=== PATIENT | female | born 1990 | race Caucasian/White ===

== ENCOUNTER → 2017-08-27 15:49 | Outpatient (CLI) | payer OTHER, SELFPAY ==
--- NOTE | 2017-08-27 15:51 | US_ITS ---
STUDY: SECOND AND THIRD TRIMESTER OBSTETRICAL ULTRASOUND REASON FOR EXAM: Female, 27 years old. Anatomy scan. LMP: April 16, 2017. TECHNIQUE: Transabdominal PRIOR ULTRASOUND: None. FINDINGS: There is a single intrauterine fetus. The fetus is in a cephalic presentation. There is demonstrated cardiac activity with a heart rate of 143 bpm. There is a normal amniotic fluid volume. The largest amniotic fluid pocket measures 3.4 cm. The placenta is posterior in location and is not low lying. There are Grade 0 placental changes. The cervix measures 3.3 cm in length. The bilateral adnexal regions are normal. BIOMETRY: BPD: 4.42 cm: 19 weeks, 3 days HC: 16 cm: 18 weeks, 6 days AC: 13.51 cm: 19 weeks, 0 days FL: 2.95 cm: 19 weeks, 1 days CI: 79 FL/BPD: 67 FL/HC: FL/AC: 22 HC/AC: 1.18 age by current US: 19 weeks, 1 days. TORRES by current US: January 20, 2018. Estimated weight: 270 grams, +/- 39 grams, 47 %. Age by LMP: 19 weeks, 0 days. TORRES by LMP: January 21, 2018. ANATOMY: Gender: Male Cranium: Normal lateral ventricles. Normal choroid plexus. Normal cerebellum. Normal cisterna magna. Normal face, nose and lips. Chest: Normal 4-chamber heart. Abdomen/Pelvis: Normal diaphragm. Normal stomach. Normal abdominal wall. Normal cord insertion. Normal 3 vessel cord. Normal kidneys. Normal bladder. Spine: Normal cervical spine. Normal thoracic spine. Normal lumbar spine. Normal sacrum. Extremities: Normal bilateral upper extremities. Normal bilateral lower extremities. US/OB Anatomy Scan IMPRESSION: 1. Live single intrauterine at 19 weeks, 1 day. TORRES is January 20, 2018. This correlates with expected gestational age by LMP. 2. EFW of 270 g. 3. Adequate amniotic fluid. 4. Posterior grade 0 placenta. 5. Vertex presentation. 6. No evidence of abnormality. Electronically Signed: George Davila DO at 18:51 EDT Tel [phone], Service support ,
== END ==
PROVIDERS: Visit Provider Obstetrics & Gynecology
DX: Z34.01 Encounter for supervision of normal first pregnancy, first trimester (principal); Z3A.00 Weeks of gestation of pregnancy not specified
CPT/HCPCS: 76805

== ENCOUNTER → 2017-10-28 15:17 | Outpatient (CLI) | payer OTHER, SELFPAY ==
[2017-10-28 16:02] LABS: Absolute Lymphocyte Count 2.07 X10^3/ul (0.83-4.51); Absolute Neutrophil Count 7.3 X10^3/uL (2.0-7.7); Basophil# 0.03 X10^3/uL; Basophil% 0.3 % (0-1); Eosinophil# 0.27 X10^3/uL; Eosinophils% 2.5 % (0-5); Hematocrit 32.9 % (37-47); Hemoglobin 11.3 g/dl (12.0-15.0); Lymphocyte # 2.07 X10^3/ul (4.0); Mean Corp Hgb Conc 34.3 g/gl (32-36); Mean Corpuscular Hgb 32.8 pg (27.0-32.0); Mean Corpuscular Volume 95.4 fL (81-99); Mean Platelet Vol. 11.8 fl (6.2-12.0); Monocyte% 10.1 % (0-10); Neutrophil # 7.29 X10^3/uL (2.7-7.7); Neutrophil % 67.1 % (47-70); Platelet Count 195 K/mm3 (150-450); RBC Distribution Width CV 13.5 % (11.6-14.6); Red Blood Count 3.45 M/mm3 (4.2-5.4); White Blood Count 10.9 K/mm3 (4.4-11.0)
[2017-10-28 16:05] LABS: POSITIVE COUNT NO; POSITIVE DIFFERENTIAL NO; POSITIVE MORPHOLOGY NO
[2017-10-28 16:10] LABS: Glucose Challenge Gest 1H 50g 98 mg/dL (70-140)
== END ==
PROVIDERS: Visit Provider Obstetrics & Gynecology
DX: Z34.01 Encounter for supervision of normal first pregnancy, first trimester (principal)
CPT/HCPCS: 36415; 82950; 85025; 86850; 86900

== ENCOUNTER → 2017-12-30 17:27 | Outpatient (CLI) | payer OTHER, SELFPAY ==
[2017-12-30 19:50] LABS: Group B Strep DNA By PCR POSITIVE (Negative); Probe Check PASS
== END ==
PROVIDERS: Visit Provider Obstetrics & Gynecology
DX: Z34.00 Encounter for supervision of normal first pregnancy, unspecified trimester (principal)
CPT/HCPCS: 87653

== ENCOUNTER 2018-01-25 09:30 | Inpatient (IN) | payer OTHER, SELFPAY ==
[2018-01-25 07:45] VITALS: BMI 32.5
[2018-01-25 09:57] LABS: Hematocrit 36.8 % (37-47); Hemoglobin 12.4 g/dl (12.0-15.0); Mean Corp Hgb Conc 33.7 g/gl (32-36); Mean Corpuscular Hgb 31.7 pg (27.0-32.0); Mean Corpuscular Volume 94.1 fL (81-99); Mean Platelet Vol. 12.9 fl (6.2-12.0); Platelet Count 147 K/mm3 (150-450); RBC Distribution Width CV 13.5 % (11.6-14.6); RBC Distribution Width SD 46.1 fl (35.1-43.9); Red Blood Count 3.91 M/mm3 (4.2-5.4); White Blood Count 11.1 K/mm3 (4.4-11.0)
[2018-01-25 09:58] LABS: Scan Indicated on CBC? Y/N NO
[2018-01-25] MEDS: Lactated Ringers 1,000 ML 50 ML IV ×3 (10:11→14:48)
[2018-01-25] MEDS: fentaNYL-bupivacaine (epidural) 100 ML BAG EPIDURAL ×2 (11:42→14:48)
[2018-01-25] MEDS: Oxytocin 30 units/NS 500 ml 30 UNITS/500 ML IV.SOLN 334 UNITS IV (18:03)
[2018-01-25] MEDS: Oxytocin 30 units/NS 500 ml 30 UNITS/500 ML IV.SOLN 167 UNITS IV (18:30)
[2018-01-25] MEDS: 0.9% Saline Lock 10 ML Syringe IV (19:41)
[2018-01-25 23:00] VITALS: BP 126/58; PULSE 78; RESP 16; TEMP 36.4; O2SAT 97
[2018-01-26] MEDS: Acetaminophen 500 MG Tablet 1000 MG PO ×3 (00:13→18:20)
[2018-01-26 03:18] VITALS: BP 113/56; PULSE 86; RESP 16; TEMP 36.4; O2SAT 98
--- NOTE | 2018-01-26 08:30 | PCM.PN.OB ---
Subjective: No CP, SOb. Doing well - Physical Exam General: Alert, Oriented x3 Abdomen: Soft, Non Tender, - - FF below U Vital Signs Temp Pulse Resp BP Pulse Ox 97.5 F L 86 16 113/56 L 98 01/26/18 03:18 01/26/18 03:18 01/26/18 03:18 01/26/18 03:18 01/26/18 03:18 Oxygen Delivery Method Room Air Weight: 207 lb 12.8 oz Body Mass Index (BMI) 32.5 Intake and Output for Last 24 Hours 01/24/18 01/25/18 01/26/18 23:59 23:59 23:59 Intake Total 3839 / 3839 Output Total 1250 / 1250 300 / 300 Balance 2589 / 2589 -300 / -300 Laboratory Tests Past 24 Hrs 01/25/18 01/25/18 01/25/18 09:40 09:40 19:30 WBC 11.1 H RBC 3.91 L Hgb 12.4 Hct 36.8 L MCV 94.1 MCH 31.7 MCHC 33.7 RDW 13.5 RDW Differential 46.1 H Plt Count 147 L MPV 12.9 H Blood Type O NEGATIVE Antibody Screen NEGATIVE Screen NEGATIVE Baby's Blood Type O POSITIVE Baby's CHANO NEGATIVE Medical Necessity - Tobacco Use Smoking Status: Never smoker Assessment/Plan All Active Problems (Last Reviewed 01/21/18 @ 16:12 by Pauly Lima) (Acute) GBS (group B Streptococcus carrier), +RV culture, currently (Acute) Rh negative status during (Acute) Supervision of normal first (Acute) PPD#1: Routine care, pain controlled, .
[2018-01-26 09:10] VITALS: BP 111/75; PULSE 75; RESP 20; TEMP 36.4; O2SAT 98
[2018-01-26 12:15] VITALS: BP 110/51; PULSE 70; TEMP 36.2; O2SAT 99
[2018-01-26 15:40] VITALS: BP 113/57; PULSE 71; TEMP 36.2; O2SAT 99
[2018-01-26 20:10] VITALS: BP 115/57; PULSE 84; RESP 16; TEMP 36.6; O2SAT 98
[2018-01-27 03:20] VITALS: BP 121/62; PULSE 78; RESP 16; TEMP 36.6; O2SAT 98
[2018-01-27] MEDS: Ketorolac 10 MG Tablet PO ×2 (03:30→10:06)
[2018-01-27 08:00] VITALS: BP 114/64; PULSE 55; RESP 16; TEMP 36.1
[2018-01-27] MEDS: Senna/Docusate Sodium 1 Tablet PO (10:09)
[2018-01-27 12:59] VITALS: BP 113/57; PULSE 72; RESP 16; TEMP 36.2
--- NOTE | 2018-01-27 14:05 | PCM.DCVAG ---
Additional Instructions: If you experience any of the following, contact your healthcare provider. Bleeding that soaks a pad every hour for 2 hours Fever 100.4 or higher Unrelieved incision or abdominal pain Swelling, redness, discharge or bleeding from your incision or episiotomy site Your incision begins to separate Problems urinating (including inability to urinate or burning while urinating). Visual changes Severe headache Flu-like symptoms Pain or redness in one of both of your breasts Pain, warmth, tenderness or swelling in your legs, especially the calf area Frequent nausea and vomiting Symptoms of depression or anxiety If you experience any of the following, call 911 or go to the nearest Emergency Room. Chest pain Problems breathing Seizure activity Partial or complete paralysis of a body part, slurred speech, weakness or drooping of the face, or a sudden inability to walk or hold your balance Allergies/Adverse Reactions: Allergies No Known Allergies Allergy (Verified 01/25/18 07:46) Medications to take at Discharge vit 47-iron fum 27 mg iron-folate no1 1 mg-dha 300 mg capsule 1 cap PO .daily #30 ea 06/09/17 naproxen 500 mg tablet 500 mg PO BID PRN #30 tab 01/27/18 Primary Care Physician: Abeba Hernandez,Out of [Primary Care Provider] - Test Results: Test results from this visit will be discussed in further detail at your follow-up appointment, if applicable.
--- NOTE | 2018-01-31 07:23 | PCM.HP.OB ---
- Problem List (1) Active labor Status: Acute History Date of Admission: 01/25/18 Final TORRES: 01/21/18 Gestational age: 40 Weeks and 4 Days History of this : This is a 27 year-old, , at 40 weeks gestational age IAL co regular ctx. she has had an uncomplicated Surgical History: Surgical History (Last Reviewed 01/21/18 @ 16:12 by Pauly Lima) History of tonsillectomy Z98.890, Z90.89 Allergies No Known Allergies Allergy (Verified 01/25/18 07:46) Home Medications: Home Medications vit 47-iron fum 27 mg iron-folate no1 1 mg-dha 300 mg capsule 1 cap PO .daily #30 ea 06/09/17 naproxen 500 mg tablet 500 mg PO BID PRN #30 tab 01/27/18 Smoking Status: Never smoker Heart Tracing: fht 140 moderate variability reactive no decels TOCO Analysis: q2-4 History Past Pregnancies: Past Pregnancies Delivery Date Name GA/Weeks Outcome Route Weight Infant Gender Labor Length Anesthesia Delivery Location Provider FOB Labs: Mom's Labs & Results 01/25/18 01/25/18 01/25/18 09:40 09:40 19:30 WBC 11.1 H RBC 3.91 L Hgb 12.4 Hct 36.8 L MCV 94.1 MCH 31.7 MCHC 33.7 RDW 13.5 RDW Differential 46.1 H Plt Count 147 L MPV 12.9 H Blood Type O NEGATIVE Antibody Screen NEGATIVE Screen NEGATIVE Baby's Blood Type O POSITIVE Baby's CHANO NEGATIVE Course Did the patient receive Yes care? Labs Blood Type: O RH: NEGATIVE RPR/VDRL/Syphilis Nonreactive Rubella status Immune HbSAg Negative Date Done: 06/09/17 Chlamydia Negative Gonorrhea Negative HIV/AIDS Non-Reactive Group B Strep: Positive Current Obstetrical History Gestational Diabetes No Incompetent Cervix No Infertility No IUGR No Macrosomia No Hypertension/Pre-eclampsia No Placenta Previa/Abruption No PTL/PROM No Uterine anomaly No Oligohydramnios No Polyhydramnios No Multiple gestation No Past Medical History Asthma No Diabetes No Hypertension No Heart disease No Mitral valve prolapse No Neurologic/Seizure disorder/ No Migraines Kidney disease No Liver disease No Varicosities No Clotting disorders/Hx of DVT No Thyroid Dysfunction No Other medical diseases No Psychiatric disorders No Major trauma No Abnormal PAP smear No Sleep apnea No Mammogram in the last 2 years No Social History Marital Status: Alleged father Shaun Hernandez Hx Smoking No Smoking Status Never smoker Review of Systems Constitutional: Denies: Fever, Malaise Eyes: Denies: Blurred vision, Vision Change HEENT: Denies: Head Aches, Visual Changes Cardiovascular: Denies: Chest Pain, Palpitations Respiratory: Denies: Cough, Shortness of Breath, Wheezing Gastrointestinal: Denies: Abdominal Pain, Diarrhea, Nausea, Vomiting Genitourinary: Denies: Dysuria, Hematuria Musculoskeletal: Denies: Joint Pain, Muscle pain Skin: Denies: Lesions, Rash Neurological: Denies: Blurred vision, Focal weakness, Headaches Psychiatric: Denies: Anxiety, Depression Endocrine: Denies: Heat/ Cold Intolerance Hematologic/ Lymphatic: Denies: Easy Bruising, Easy Bleeding Physical Exam Vitals: Vital Signs Temp Pulse Resp BP Pulse Ox 97.2 F L 72 16 113/57 L 98 01/27/18 12:59 01/27/18 12:59 01/27/18 12:59 01/27/18 12:59 01/27/18 03:20 General: Alert, Cooperative, No apparent distress HEENT: Atraumatic, Normocephalic. Negative for: Thyromegaly, Lymphadenopathy Cardiovascular: Regular rate Lungs: Normal air movement Abdomen: Soft, Non Tender, Gravid Neurological: Deep Tendon Reflexes 2+/4 and Symmetrical, Neuro grossly intact. Negative for: Clonus STARS SPECIALIST: Normal external genitalia. Negative for: Vulvar lesions Estimated gestational size: Appropriate for gestational size Presentation: Cephalic Cervix Dilation (cm): 4 Assessment/Plan All Active Problems (Last Reviewed 01/21/18 @ 16:12 by Pauly Lima) Active labor (Acute) (Acute) GBS (group B Streptococcus carrier), +RV culture, currently (Acute) Rh negative status during (Acute) Supervision of normal first (Acute) This is a 27 year-old, at 40 weeks gestational age IAL admit IAL epidural arom clear fluid
--- NOTE | 2018-01-31 07:26 | PCM.OB.VAG ---
- Problem List (1) Active labor Status: Acute Vaginal Delivery Maternal Presentation: Active Labor ial 40 weeks Amniotic Membrane Rupture Type: Artificial Amniotic Fluid Description: Clear Final TORRES: 01/21/18 Gestational age: 40 Weeks and 4 Days Date of Procedure: 01/25/18 Pre-Operative Diagnosis: ial Post-Operative Diagnosis: same Surgery/ Procedure Performed: Spontaneous Vaginal Delivery Type of Anesthesia: Epidural Description of Procedure: Patient began pushing and delivered the head in the SYDNEY presentation. The head was delivered atraumatically. The anterior and posterior shoulders delivered without complication followed by the rest of the infant and the infant was placed on the maternal abdomen. Delayed cord clamping was employed for approximately 60 seconds. Cord was clamped and cut and gentle traction was applied to the cord and the placenta delivered spontaneously immediately following it was noted to be intact with three-vessel cord. The perineum and vagina were inspected and [noted to have a small 1st degree perineal laceration repaired in liborio usual fashion. Patient and infant tolerated delivery well. Presentation: SYDNEY Placental Delivery Description: Spontaneous Placenta Disposition: [facility] Cord Entanglement: None Episiotomy Description: None Laceration: Perineal Extension/lac, 1st degree Medications given after delivery: IV Pitocin Complications: None
== END 2018-01-27 15:35 | disposition home or self-care (01) | DRG 775 ==
LOC: WPOUT 09:35
PROVIDERS: Admitting Provider Obstetrics & Gynecology; Visit Provider Obstetrics & Gynecology
DX: O99.824 Streptococcus B carrier state complicating childbirth (principal); O70.0 First degree perineal laceration during delivery; Z3A.40 40 weeks gestation of pregnancy; Z37.0 Single live birth
CPT/HCPCS: 59025; 59050; 85027; 85461; 86850; 86900; 90384; 99218; J7120; A4216; G0378; J2790

== ENCOUNTER 2018-01-31 09:50 | Outpatient (CLI) | payer OTHER, SELFPAY | END 2018-01-31 11:15 | disposition home or self-care (01) | LOC: WPOUT 09:55 → WP 16:15 | PROVIDERS: Visit Provider Obstetrics & Gynecology | DX: Z39.1 Encounter for care and examination of lactating mother (principal) | CPT/HCPCS: 96152 ==

== ENCOUNTER 2018-02-07 10:25 | Outpatient (CLI) | payer OTHER, SELFPAY | END 2018-02-07 10:40 | disposition home or self-care (01) | LOC: WPOUT 10:33 → WP 10:33 | PROVIDERS: Visit Provider Obstetrics & Gynecology | DX: Z39.1 Encounter for care and examination of lactating mother (principal) | CPT/HCPCS: 96152 ==

== ENCOUNTER 2018-02-16 10:08 | Outpatient (CLI) | payer OTHER, SELFPAY | END 2018-02-16 11:00 | disposition home or self-care (01) | LOC: WPOUT 10:10 → WP 10:11 | PROVIDERS: Visit Provider Obstetrics & Gynecology | DX: Z39.1 Encounter for care and examination of lactating mother (principal) | CPT/HCPCS: 96152 ==

== ENCOUNTER → 2018-03-10 20:40 | Outpatient (CLI) | payer OTHER, SELFPAY ==
[2018-03-16 12:03] LABS: HPV Reflexed? NOT INDICATED
== END ==
PROVIDERS: Referring Provider Obstetrics & Gynecology; Visit Provider Obstetrics & Gynecology
DX: Z12.4 Encounter for screening for malignant neoplasm of cervix (principal)
CPT/HCPCS: 88175; G0145

== ENCOUNTER → 2019-11-13 08:51 | Outpatient (CLI) | payer OTHER, SELFPAY ==
[2019-11-08 15:49] VITALS: BMI 28.1
--- NOTE | 2019-11-13 08:52 | BI_ITS ---
MAMMOGRAPHY - BILATERAL DIAGNOSTIC REASON FOR EXAM: Female, 29 years old. Left breast lump with tenderness in the upper outer quadrant. PERTINENT HISTORY: Non-contributory. TECHNIQUE: Digital bilateral breast angel (3D mammographic acquisition) in the CC and MLO projections. 2-D mediolateral oblique (MLO) and craniocaudad (CC) views of both breasts were obtained. CAD: Full Field Digital Mammography with Computer Added Detection was performed. COMPARISON: None. Baseline examination. FINDINGS: Breast Composition: The breasts are extremely dense, which lowers the sensitivity of mammography. There are no dominant masses or suspicious calcifications. No other significant abnormalities are identified. BI/DIAG MAMM W/CAD, BILAT IMPRESSION: Negative diagnostic mammogram. With the patient''s history of a left breast lump, correlation with ultrasound is recommended. ASSESSMENT CATEGORY: BIRADS Category 0: Incomplete. Need additional imaging evaluation. A letter regarding these results will be sent to the patient by the facility within 30 days. Approximately 10% of breast cancers are not detected by mammography. A normal mammogram should not delay biopsy of a clinically suspicious abnormality. Electronically Signed: Yasir Mendoza, at 10:02 EDT , Service support ,
--- NOTE | 2019-11-13 08:52 | US_ITS ---
STUDY: ULTRASOUND BREAST - LEFT REASON FOR EXAM: Female, 29 years old. Palpable lump left breast. TECHNIQUE: Axial and longitudinal images of the LEFT breast were performed with a high resolution ultrasound transducer. # OF IMAGES: 15 COMPARISON: Comparison is made with prior mammogram done earlier in the day. FINDINGS: LEFT Breast: There is evidence of dense fibroglandular tissue in the upper outer quadrant of the left breast. No sonographic abnormality is seen. US/Breast Limited Unilateral IMPRESSION: No sonographic abnormalities. ASSESSMENT CATEGORY: BIRADS Category 2: Benign. A letter regarding these results will be sent to the patient by the facility within 30 days. Electronically Signed: Yasir Mendoza, at 10:18 EDT , Service support ,
== END ==
PROVIDERS: PCP Family Medicine; Referring Provider Obstetrics & Gynecology; Visit Provider Obstetrics & Gynecology
DX: N63.21 Unspecified lump in the left breast, upper outer quadrant (principal)
CPT/HCPCS: 76642; 77062; 77066; G0279

== ENCOUNTER → 2020-02-28 15:18 | Outpatient (CLI) | payer OTHER, SELFPAY ==
[2020-02-28 14:12] VITALS: BMI 27.1
[2020-02-28 15:38] LABS: Absolute Lymphocyte Count 1.81 X10^3/uL (0.83-4.51); Absolute Neutrophil Count 5.3 X10^3/uL (2.0-7.7); Basophil# 0.04 X10^3/uL; Basophil% 0.5 % (0-1); Eosinophils% 2.5 % (0-5); Hemoglobin 11.3 g/dL (12.0-15.0); Lymphocyte # 1.81 X10^3/ul (4.0); Lymphocyte % 22.6 % (19-41); Mean Corp Hgb Conc 33.2 g/dL (32-36); Mean Corpuscular Hgb 30.9 pg (27.0-32.0); Mean Corpuscular Volume 92.9 fL (81-99); Mean Platelet Vol. 12.2 fl (6.2-12.0); Monocyte# 0.69 X10^3/uL; Monocyte% 8.6 % (0-10); NRBC Flagged by Analyzer 0 % (0-5); Neutrophil # 5.26 X10^3/uL (2.7-7.7); Neutrophil % 65.6 % (47-70); Platelet Count 174 K/mm3 (150-450); RBC Distribution Width CV 12.6 % (11.6-14.6); Red Blood Count 3.66 M/mm3 (4.2-5.4)
[2020-02-28 18:57] LABS: Amphetamine Urine VISTA NEGATIVE (<1000 ng/mL); Barbiturate Urine VISTA NEGATIVE (< 200 ng/mL); Benzodiazepine Urine VISTA NEGATIVE (< 200 ng/mL); Cocaine Urine VISTA NEGATIVE (< 300 ng/mL); Ecstacy Urine VISTA NEGATIVE (< 500 ng/mL); Methadone Urine VISTA NEGATIVE (< 300 ng/mL); PCP Urine VISTA NEGATIVE (< 25 ng/mL); THC Urine VISTA NEGATIVE (< 50 ng/mL); Vista UDS pH Range 6
[2020-02-29 04:31] LABS: Rapid Plasmin Reagin (RPR) NONREACTIVE (NONREACTIVE)
[2020-02-29 10:10] LABS: HIV - WCH Non-Reactive (Nonreactive); Hepatitis B Surface Antigen Non-Reactive (Nonreactive); Hepatitis C Antibody Non-Reactive (Nonreactive); Rubella IgG 136.2 IU/mL
[2020-03-02 20:07] LABS: Chlamydia By Nucleic Acid AMP Negative (Negative)
[2020-03-02 20:51] LABS: Gonococcus By Nucleic Acid AMP Negative (Negative)
== END ==
PROVIDERS: PCP Family Medicine; Referring Provider Obstetrics & Gynecology; Visit Provider Obstetrics & Gynecology
DX: Z34.90 Encounter for supervision of normal pregnancy, unspecified, unspecified trimester (principal)
CPT/HCPCS: 36415; 80307; 85025; 86592; 86703; 86762; 86803; 86850; 86900; 86901; 87086; 87088; 87340; 87491; 87591

== ENCOUNTER → 2020-04-22 13:36 | Outpatient (CLI) | payer OTHER, SELFPAY ==
[2020-04-22 13:03] VITALS: BMI 27.6
[2020-04-22 14:15] LABS: Thyroid Stim Hormone (TSH) 3.49 uIU/mL (0.358-3.74)
== END ==
PROVIDERS: PCP Family Medicine; Referring Provider Obstetrics & Gynecology; Visit Provider Obstetrics & Gynecology
DX: R53.83 Other fatigue (principal)
CPT/HCPCS: 36415; 84443

== ENCOUNTER → 2020-05-06 06:37 | Outpatient (CLI) | payer OTHER, SELFPAY ==
[2020-05-06 07:15] LABS: Absolute Lymphocyte Count 2.16 X10^3/uL (0.83-4.51); Absolute Neutrophil Count 8.5 X10^3/uL (2.0-7.7); Basophil# 0.04 X10^3/uL; Basophil% 0.3 % (0-1); Eosinophil# 0.41 X10^3/uL; Eosinophils% 3.4 % (0-5); Hematocrit 35.6 % (37-47); Hemoglobin 11.7 g/dL (12.0-15.0); Lymphocyte # 2.16 X10^3/ul (4.0); Lymphocyte % 17.9 % (19-41); Mean Corp Hgb Conc 32.9 g/dL (32-36); Mean Corpuscular Hgb 31.7 pg (27.0-32.0); Mean Corpuscular Volume 96.5 fL (81-99); Mean Platelet Vol. 11.6 fl (6.2-12.0); Monocyte# 0.74 X10^3/uL; Monocyte% 6.1 % (0-10); NRBC Flagged by Analyzer 0 % (0-5); Neutrophil # 8.46 X10^3/uL (2.7-7.7); Neutrophil % 70.4 % (47-70); Platelet Count 215 K/mm3 (150-450); RBC Distribution Width CV 13.6 % (11.6-14.6); RBC Distribution Width SD 47.5 fl (35.1-43.9); Red Blood Count 3.69 M/mm3 (4.2-5.4)
[2020-05-06 07:45] LABS: ALB/GLOB Ratio 0.9 RATIO (0.9-2.4); AST(SGOT) 8 U/L (15-37); Alanine Aminotransfer ALT/SGPT 17 U/L (13-56); Albumin, Serum 3.3 g/dL (3.2-5.0); Alkaline Phosphatase 51 U/L (45-117); Anion Gap 5 (5-15); BUN 9 mg/dL (7-18); BUN/Creat Ratio 13.5 RATIO (10-20); Calcium,Total 8.6 mg/dL (8.5-10.1); Chloride 103 mmol/L (98-107); Creatinine, Serum 0.67 mg/dL (0.55-1.02); EST Glomerular Filtration Rate 112 mL/min (>60); Est Glom Filt Rate - Afr Amer 135 mL/min (>60); Globulin 3.7 g/dL (2.2-4.2); Glucose 65 mg/dL (74-106); Potassium 3.4 mmol/L (3.5-5.1); Sodium Level 136 mmol/L (136-145)
== END ==
PROVIDERS: PCP Family Medicine; Referring Provider Obstetrics & Gynecology; Visit Provider Obstetrics & Gynecology
DX: R21 Rash and other nonspecific skin eruption (principal)
CPT/HCPCS: 36415; 80053; 85025

== ENCOUNTER → 2020-05-21 06:05 | Outpatient (CLI) | payer OTHER, SELFPAY ==
[2020-05-20 16:06] VITALS: BMI 28.7
== END ==
PROVIDERS: Obstetrics & Gynecology; PCP Family Medicine; Referring Provider Obstetrics & Gynecology; Visit Provider Obstetrics & Gynecology
DX: R21 Rash and other nonspecific skin eruption (principal)
CPT/HCPCS: 36415

== ENCOUNTER → 2020-06-03 06:18 | Outpatient (CLI) | payer OTHER, SELFPAY ==
[2020-05-30 14:22] VITALS: BMI 29.7
== END ==
PROVIDERS: PCP Family Medicine; Referring Provider Obstetrics & Gynecology; Visit Provider Obstetrics & Gynecology
DX: R21 Rash and other nonspecific skin eruption (principal)
CPT/HCPCS: 36415

== ENCOUNTER → 2020-07-17 15:10 | Outpatient (CLI) | payer OTHER, SELFPAY ==
[2020-06-17 16:07] VITALS: BMI 30.9
[2020-07-17 15:27] LABS: Absolute Lymphocyte Count 1.76 X10^3/uL (0.83-4.51); Absolute Neutrophil Count 8.2 X10^3/uL (2.0-7.7); Basophil# 0.07 X10^3/uL; Basophil% 0.6 % (0-1); Eosinophil# 0.36 X10^3/uL; Eosinophils% 3.1 % (0-5); Hematocrit 34.3 % (37-47); Hemoglobin 11.6 g/dL (12.0-15.0); Lymphocyte # 1.76 X10^3/ul (4.0); Mean Corp Hgb Conc 33.8 g/dL (32-36); Mean Corpuscular Hgb 32.5 pg (27.0-32.0); Mean Corpuscular Volume 96.1 fL (81-99); Mean Platelet Vol. 11.5 fl (6.2-12.0); Monocyte# 1.08 X10^3/uL; Monocyte% 9.2 % (0-10); NRBC Flagged by Analyzer 0 % (0-5); Neutrophil # 8.24 X10^3/uL (2.7-7.7); Neutrophil % 70.1 % (47-70); Platelet Count 198 K/mm3 (150-450); RBC Distribution Width CV 13.3 % (11.6-14.6); RBC Distribution Width SD 47.1 fl (35.1-43.9); Red Blood Count 3.57 M/mm3 (4.2-5.4); White Blood Count 11.8 K/mm3 (4.4-11.0)
[2020-07-17 15:42] LABS: Glucose Challenge Gest 1H 50g 94 mg/dL (70-140)
== END ==
PROVIDERS: PCP Family Medicine; Referring Provider Obstetrics & Gynecology; Visit Provider Obstetrics & Gynecology
DX: O26.899 Other specified pregnancy related conditions, unspecified trimester (principal); Z13.1 Encounter for screening for diabetes mellitus; Z67.91 Unspecified blood type, Rh negative; Z3A.00 Weeks of gestation of pregnancy not specified
CPT/HCPCS: 36415; 82950; 85025; 86850; 86900; 86901

== ENCOUNTER → 2020-09-23 | Outpatient (CLI) | payer OTHER, SELFPAY ==
[2020-09-23 15:42] VITALS: BMI 31.9
== END | disposition home or self-care (01) ==
LOC: LABSPEC 16:51
PROVIDERS: PCP Family Medicine; Referring Provider Obstetrics & Gynecology; Visit Provider Obstetrics & Gynecology
DX: Z34.90 Encounter for supervision of normal pregnancy, unspecified, unspecified trimester (principal)
CPT/HCPCS: 87077; 87081; 87186

== ENCOUNTER 2020-10-16 02:55 | Inpatient (IN) | payer OTHER, SELFPAY ==
[2020-10-14 09:20] VITALS: BMI 31.9
[2020-10-16] VITALS (51 sets, daily range): BP systolic 106–139; BP diastolic 52–74; PULSE 54–90; RESP 16; TEMP 35.9–37.4; O2SAT 85–100; BMI 34.8
[2020-10-16] MEDS: Lactated Ringers 500 ML 999 ML IV (03:00)
[2020-10-16] MEDS: Ondansetron 4 MG/2 ML Vial IV (03:17)
[2020-10-16 03:38] LABS: Absolute Lymphocyte Count 2.14 X10^3/uL (0.83-4.51); Absolute Neutrophil Count 5.9 X10^3/uL (2.0-7.7); Basophil# 0.05 X10^3/uL; Basophil% 0.5 % (0-1); Eosinophil# 0.18 X10^3/uL; Hematocrit 36.9 % (37-47); Hemoglobin 12.6 g/dL (12.0-15.0); Lymphocyte # 2.14 X10^3/ul (0.83-4.51); Lymphocyte % 23.2 % (19-41); Mean Corp Hgb Conc 34.1 g/dL (32-36); Mean Corpuscular Hgb 31.9 pg (27.0-32.0); Mean Corpuscular Volume 93.4 fL (81-99); Monocyte# 0.95 X10^3/uL; Monocyte% 10.3 % (0-10); NRBC Flagged by Analyzer 0 % (0-5); Neutrophil # 5.87 X10^3/uL (2.7-7.7); Neutrophil % 63.6 % (47-70); Platelet Count 147 K/mm3 (150-450); RBC Distribution Width CV 13.1 % (11.6-14.6); RBC Distribution Width SD 44.4 fl (35.1-43.9); Red Blood Count 3.95 M/mm3 (4.2-5.4); White Blood Count 9.2 K/mm3 (4.4-11.0)
[2020-10-16] MEDS: Lactated Ringers 1,000 ML 200 ML IV (03:39)
[2020-10-16] MEDS: fentaNYL-bupivacaine (epidural) 100 ML BAG EPIDURAL (04:28)
--- NOTE | 2020-10-16 05:41 | HP.PCM.OB_ITS ---
HPI - General General Date of Admission: 10/16/20 HPI Narrative TARA ERAZO, is a 30 F who presents in active labor with regular contractions 4 cm dilated 80% and -1. Patient is 41 weeks with her second baby. 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[employer] History 2 Elective abortions Hx Para 1 Spontaneous abortions Hx # Term Pregnancies 1 Ectopic pregnancies Hx # Pregnancies Multiple births # of living children 1 NST FHR Rate Baby A Baseline: 140 Variability:: Moderate Accelerations:: None Decelerations:: None NST Reactive:: Appropriate for gestational age and Non-Reactive ROS Review of Systems ROS Unobtainable: due to mental status and other Constitutional Constitutional: Reports systems reviewed and no addt'l complaints, except as documented; Denies as per HPI, change in weight, fatigue, fever(s), malaise, weakness or other Eyes Eyes: Reports systems reviewed and no addt'l complaints, except as documented; Denies as per HPI, change in vision or other ENT HEENT: Reports as per HPI; Denies dizziness, dry mouth, headache(s), loss taste/smell, nasal congestion, nasal discharge, neck pain, sore throat or other Respiratory/Chest Respiratory/Chest: Reports systems reviewed and no addt'l complaints, except as documented Gastrointestinal Gastrointestinal: Reports systems reviewed and no addt'l complaints, except as documented; Denies abdominal pain, nausea or vomiting Musculoskeletal Musculoskeletal: Reports systems reviewed and no addt'l complaints, except as documented; Denies back pain or joint pain Integumentary Integumentary: Reports systems reviewed and no addt'l complaints, except as documented Neurologic Neurologic: Reports systems reviewed and no addt'l complaints, except as documented Psychiatric Psychiatric: Reports systems reviewed and no addt'l complaints, except as documented Endocrine Endocrinology: Reports systems reviewed and no addt'l complaints, except as documented Hematologic/Lymphatic Hematologic/Lymphatic: Reports systems reviewed and no addt'l complaints, except as documented Vital Signs Vital Signs Vital Signs: 10/16/20 02:39 10/16/20 02:48 10/16/20 04:02 Temperature 98.4 F Pulse Rate 78 76 Blood Pressure 122/74 H BP Systolic 122 BP Diastolic 74 Pulse Ox 95 10/16/20 04:06 10/16/20 04:07 10/16/20 04:10 Temperature Pulse Rate 57 L 61 58 L Blood Pressure 119/67 119/66 BP Systolic 119 119 BP Diastolic 67 66 Pulse Ox 97 10/16/20 04:13 10/16/20 04:16 10/16/20 04:18 Temperature Pulse Rate 65 58 L 67 Blood Pressure 106/54 L BP Systolic 106 BP Diastolic 54 Pulse Ox 85 98 10/16/20 04:19 10/16/20 04:23 10/16/20 04:26 Temperature Pulse Rate 65 66 71 Blood Pressure 108/59 L 124/55 H BP Systolic 108 124 BP Diastolic 59 55 Pulse Ox 94 97 10/16/20 04:28 10/16/20 04:32 10/16/20 04:33 Temperature 97.9 F Pulse Rate 70 63 72 Blood Pressure 121/65 H BP Systolic 121 BP Diastolic 65 Pulse Ox 97 99 10/16/20 04:35 10/16/20 04:38 10/16/20 04:41 Temperature Pulse Rate 64 65 71 Blood Pressure 111/60 123/69 H BP Systolic 111 123 BP Diastolic 60 69 Pulse Ox 100 10/16/20 04:43 10/16/20 04:48 10/16/20 04:52 Temperature Pulse Rate 62 70 61 Blood Pressure 123/59 H 123/72 H BP Systolic 123 123 BP Diastolic 59 72 Pulse Ox 99 99 10/16/20 04:53 10/16/20 04:57 10/16/20 04:58 Temperature Pulse Rate 66 72 64 Blood Pressure 121/69 H BP Systolic 121 BP Diastolic 69 Pulse Ox 100 100 10/16/20 04:59 Temperature 97.2 F L Pulse Rate Blood Pressure BP Systolic BP Diastolic Pulse Ox Physical Exam Const alert, oriented x3 and no apparent distress HEENT normocephalic Head and Scalp: atraumatic Eyes EOMs intact bilaterally and conjunctivae normal Neck full ROM, no lymphadenopathy, supple and thyroid normal General: trachea midline Lymph Lymphatic: no lymphadenopathy noted Chest inspection of chest normal, palpation of chest normal, inspection of breasts normal and palpation of breasts normal Breast/Axilla Inspection: normal inspection of the axillae Breast/Axilla Palpation: normal palpation of the axillae and no axillary lymphadenopathy Resp normal respiratory effort, no retractions, no use of accessory muscles and clear to auscultation bilaterally Cardio regular rate and regular rhythm GI normal to inspection, nondistended, normoactive bowel sounds, soft to palpation, non-tender, non-distended and no masses external exam normal, appearance of the vagina normal, appearance of the cervix normal, bimanual exam normal, adnexae non-tender and no adnexal masses Back/Spine no CVA tenderness Extremity normal to inspection Skin no rashes or lesions noted Neuro moves all extremities and deep tendon reflexes 2+ bilaterally Motor Exam: clonus absent and clonus present Psych mental status grossly normal Assessment & Plan Assessment/Plan (1) Positive GBS test: Status: Acute Code(s): B95.1 - Streptococcus, group B, as the cause of diseases classified elsewhere (2) 37 weeks gestation of : Status: Acute Code(s): Z3A.37 - 37 weeks gestation of (3) Rh negative status during : Status: Acute Code(s): O26.899 - Other specified related conditions, unspecified trimester; Z67.91 - Unspecified blood type, Rh negative Qualifiers: Trimester: third trimester Qualified Code(s): O26.893 - Other specified related conditions, third trimester (4) History of tetanus, diphtheria, and acellular pertussis booster vaccination (Tdap): Status: Acute Code(s): Z92.29 - Personal history of other drug therapy (5) : Status: Acute Code(s): Z34.90 - Encounter for supervision of normal , unspecified, unspecified trimester Qualifiers: Weeks of gestation: 40 weeks Qualified Code(s): Z3A.40 - 40 weeks gestation of (6) Supervision of normal : Status: Acute Code(s): Z34.90 - Encounter for supervision of normal , unspecified, unspecified trimester Qualifiers: Normal : other normal Trimester: third trimester Qualified Code(s): Z34.83 - Encounter for supervision of other normal , third trimester (7) Active labor at term: Status: Acute Plan: arom meconium.
--- NOTE | 2020-10-16 06:08 | OP.PCM_ITS ---
Report of Operation (OB) Information TORRES Calculator Estimated Delivery Date Method Current WG Current Estimate 10/09/20 LMP (Certain) 41w 0d Other Estimates 10/10/20 Ultrasound #1 40w 6d Induction Maternal Presentation: Active Labor Medical Reason for Induction: Post term Findings Description of Procedure: Patient began pushing and delivered the head in the SYDNEY presentation. The head was delivered atraumatically . The anterior and posterior shoulders delivered without complication followed by the rest of the and the was placed on the maternal abdomen. Delayed cord clamping was employed for approximately 60 seconds. Cord was clamped and cut and gentle traction was applied to the cord and the placenta delivered spontaneously immediately following it was noted to be intact with three-vessel cord. The perineum and vagina were inspected and noted to have a small first-degree supra clitoral laceration and small first-degree perineal laceration repaired in the usual fashion with 3-0 Vicryl r. Some uterine atony was noted and therefore dose Methergine was given.. EBL [id number] . Patient and infant tolerated delivery well Procedure Performed: Spontaneous Vaginal Delivery Presentation: Positive for SYDNEY Amniotic Membrane Rupture Type: Artificial Amniotic Fluid Description: Thick meconium Placental Delivery Description: Spontaneous Placenta Disposition: [facility] Cord Vessel Description: 3 Vessels Cord Entanglement: None Gender: Male Delayed Cord Clamping: Yes Drain: Oconnell to straight drain Fluids Replaced: crystalloid Esitmated Blood Loss (mL): 300 Medications Given Medications Given After Delivery: IV Pitocin Post Vaginal Delivery Episiotomy Description: None Laceration: Periurethral Extnsion/lac, Perineal Extension/lac and 1st degree Procedures Urinary/Genital [id number]: [id number] Vaginal Delivery [facility]
[2020-10-16] MEDS: Oxytocin 30 units/NS 500 ml 30 UNITS/500 ML IV.SOLN 334 UNITS IV (06:21)
[2020-10-16] MEDS: Methylergonovine 0.2 MG/ML Ampul IM (06:25)
--- NOTE | 2020-10-16 06:35 | PCM.DC ---
Discharge Instructions Outpatient Procedure Reason For Visit: LABOR/VAG DEL Follow Up Care Test Results: Test results from this visit will be discussed in further detail at your follow-up appointment, if applicable. Discharge Plan Admission Admit Date/Time: 10/16/20 02:55 Primary Reason for Your Visit: vaginal delivery Attending Provider: Josefa Greenwood Primary Care Provider: Pauly Gordon Instructions Patient Instructions: After a Vaginal , Vaginal : Your Experience Discharge Orders/Prescriptions Prescriptions: New naproxen 250 MG tablet 250 - 500 mg PO Q8H PRN PRN (Reason: MILD PAIN) Qty: 30 RF: 1 No Action 1 mg Tablet 1 tab PO DAILY RF: 0 Referrals / Follow Up: Pauly Gordon MD [Primary Care Provider] - Josefa Greenwood MD [STAFF PHYSICIAN] - Disposition Disposition (needs filled in before D/C Order can be placed): Home, self care
[2020-10-16] MEDS: miSOPROStol 200 MCG Tablet 1000 MCG RC (08:05)
--- NOTE | 2020-10-16 08:58 | PN.OBGYN_ITS ---
Objective Data Objective Data Vital Signs: Vital Signs Temp Pulse Resp BP Pulse Ox 98.6 F 57 L 16 137/68 H 100 10/16/20 08:55 10/16/20 08:55 10/16/20 08:55 10/16/20 08:55 10/16/20 08:55 Oxygen Delivery Method Room Air Weight: 209 lb 6.4 oz Body Mass Index (BMI) 34.8 Intake & Output: Intake and Output for Last 24 Hours 10/14/20 10/15/20 10/16/20 23:59 23:59 23:59 Intake Total 1641.67 / 1641.67 Output Total 300 / 300 Balance 1341.67 / 1341.67 Lab / Micro Data Result Diagrams: 10/16/20 03:00 Labs: Laboratory Results - last 24 hr 10/16/20 10/16/20 03:00 03:00 WBC 9.2 RBC 3.95 L Hgb 12.6 Hct 36.9 L MCV 93.4 MCH 31.9 MCHC 34.1 RDW Std Deviation 44.4 H RDW Coeff of Carmen 13.1 Plt Count 147 L MPV 13.0 H Immature Gran % (Auto) 0.400 Neut % (Auto) 63.6 Lymph % (Auto) 23.2 Cherry % (Auto) 10.3 H Eos % (Auto) 2.0 Baso % (Auto) 0.5 Absolute Neuts (auto) 5.9 Absolute Lymphs (auto) 2.14 Nucleated RBC % 0 Blood Type O NEGATIVE Antibody Screen NEGATIVE Micro: Microbiology 10/16/20 03:00 Mucosa - Nose SARS-CoV-2 Antigen (Rapid) - Final Physical Exam GI Inspection: incision
[2020-10-16] MEDS: 0.9% Saline Lock 10 ML Syringe IV (09:11)
[2020-10-16] MEDS: Acetaminophen 500 MG Tablet 1000 MG PO (15:39)
[2020-10-17 00:23] VITALS: BP 107/65; PULSE 62; RESP 16
[2020-10-17] MEDS: Acetaminophen 500 MG Tablet 1000 MG PO (01:31)
[2020-10-17 03:54] VITALS: BP 102/53; PULSE 69; RESP 16; TEMP 36.4
[2020-10-17] MEDS: Naproxen 250 MG Tablet 500 MG PO (08:11)
[2020-10-17 08:15] VITALS: BP 100/61; PULSE 59; RESP 18; TEMP 36.5
--- NOTE | 2020-10-17 08:56 | PCM.PN.OB ---
Subjective Subjective: Patient doing well without complaints. Tolerating PO. Ambulating and voiding without difficulty. feeding well. Denies chest pain, shortness of breath, calf pain/swelling, fevers, chills, lightheadedness. Objective Data Objective Data Vital Signs: Vital Signs Temp Pulse Resp BP Pulse Ox 97.7 F L 59 L 18 100/61 100 10/17/20 08:15 10/17/20 08:15 10/17/20 08:15 10/17/20 08:15 10/16/20 08:55 Oxygen Delivery Method Room Air Weight: 209 lb 6.4 oz Body Mass Index (BMI) 34.8 Intake & Output: Intake and Output for Last 24 Hours 10/15/20 10/16/20 10/17/20 23:59 23:59 23:59 Intake Total 1641.67 / 1641.67 Output Total 600 / 600 Balance 1041.67 / 1041.67 Lab / Micro Data Result Diagrams: 10/16/20 03:00 Labs: Laboratory Results - last 24 hr 10/16/20 09:45 Screen NEGATIVE Baby's Blood Type A POSITIVE Baby's CHANO NEGATIVE Micro: Microbiology 10/16/20 03:00 Mucosa - Nose SARS-CoV-2 Antigen (Rapid) - Final ROS Constitutional Constitutional: Reports systems reviewed and no addt'l complaints, except as documented Cardiovascular Cardiovascular: Reports systems reviewed and no addt'l complaints, except as documented Respiratory/Chest Respiratory/Chest: Reports systems reviewed and no addt'l complaints, except as documented Gastrointestinal Gastrointestinal: Reports systems reviewed and no addt'l complaints, except as documented Physical Exam Const alert, oriented x3 and no apparent distress HEENT Head and Scalp: atraumatic Eyes EOMs intact bilaterally Resp normal respiratory effort Cardio regular rate and regular rhythm GI soft to palpation and non-tender Inspection: incision Uterus Palpation: uterus fundus firm (below Umbilicus) Assessment & Plan (1) Vaginal delivery: COMMENT: boy Chris meconium 41 SM (2) Rh negative status during : QUALIFIERS: Trimester: third trimester Qualified Code(s): O26.893 - Other specified related conditions, third trimester COMMENT: rhogam given 02/27. given at 28 weeks. PLAN: s/p PPD # 1 1. routine post delivery care 2. breast feeding- support given 3. rh negative- rhogam PRN 4. rubella immune
[2020-10-17 14:50] VITALS: BP 109/47; PULSE 74; RESP 16; TEMP 36.3; O2SAT 99
== END 2020-10-17 18:30 | disposition home or self-care (01) | DRG 807 ==
LOC: WPOUT 02:56 → WP 02:56
PROVIDERS: Admitting Provider Obstetrics & Gynecology; PCP Family Medicine; Referring Provider Obstetrics & Gynecology; Visit Provider Obstetrics & Gynecology
DX: O99.824 Streptococcus B carrier state complicating childbirth (principal); O48.0 Post-term pregnancy; O70.0 First degree perineal laceration during delivery; O75.89 Other specified complications of labor and delivery; O77.0 Labor and delivery complicated by meconium in amniotic fluid; Z20.822 Contact with and (suspected) exposure to COVID-19; Z3A.41 41 weeks gestation of pregnancy; Z37.0 Single live birth
CPT/HCPCS: 59025; 59050; 85025; 85461; 86850; 86900; 86901; 87426; 90384; 99218; J7120; A4216; G0378; J2405; J2790

== ENCOUNTER → 2021-05-27 11:03 | Outpatient (CLI) | payer OTHER, SELFPAY ==
[2021-05-27 11:45] LABS: Glucose 93 mg/dL (74-106)
[2021-05-27 12:07] LABS: Vitamin D,25 Hydroxy 36.8 ng/mL
== END ==
PROVIDERS: PCP Family Medicine; Referring Provider Obstetrics & Gynecology; Visit Provider Obstetrics & Gynecology
DX: R42 Dizziness and giddiness (principal); R53.83 Other fatigue
CPT/HCPCS: 36415; 82306; 82947; 84443

== ENCOUNTER → 2021-11-24 | Outpatient (CLI) | payer OTHER, SELFPAY ==
[2021-11-26 18:03] LABS: HPV Reflexed? NOT INDICATED
== END | disposition home or self-care (01) ==
LOC: LABSPEC 11-26 13:19
PROVIDERS: PCP Family Medicine; Visit Provider Obstetrics & Gynecology
DX: Z12.4 Encounter for screening for malignant neoplasm of cervix (principal)
CPT/HCPCS: 88175; G0145

== ENCOUNTER → 2021-12-17 | Outpatient (CLI) | payer OTHER, SELFPAY ==
--- NOTE | 2021-12-17 07:49 | RAD_ITS ---
STUDY: X-RAY - ESOPHAGUS (BARIUM SWALLOW) WITH FLUOROSCOPY REASON FOR EXAM: Female, 31 years old. DYSPHAGIA TECHNIQUE: 17 view(s) of the esophagus were obtained following swallowing of barium. FLUOROSCOPY TIME (if supplied): (44 seconds) minutes/seconds COMPARISON: None. FINDINGS: There is no demonstrated esophageal foreign body. There is no demonstrated stricture or mucosal abnormality. Normal gastroesophageal junction, without a demonstrated hiatal hernia. The patient ingested a 12 mm tablet of barium. There is transient delay at the level of the gastroesophageal junction Normal visualized aortic arch and descending thoracic aorta. Normal visualized pulmonary parenchyma. Normal visualized osseous structures of the thorax. RAD/Esophagus Dual Contrast IMPRESSION: Transient delay of passage of the 12 mm tablet of barium through the gastroesophageal junction. Electronically Signed: Yasir Mendoza MD at 8:42 EDT ,
== END | disposition home or self-care (01) ==
LOC: RAD 07:48
PROVIDERS: PCP Family Medicine; Referring Provider Internal Medicine Gastroenterology; Visit Provider Internal Medicine Gastroenterology
DX: R13.10 Dysphagia, unspecified (principal)
CPT/HCPCS: 74221

== ENCOUNTER → 2022-01-26 | Outpatient (CLI) | payer OTHER, SELFPAY | END | disposition home or self-care (01) | LOC: PSN 06:34 | PROVIDERS: PCP Family Medicine; Referring Provider Internal Medicine Gastroenterology; Visit Provider Internal Medicine Gastroenterology | DX: Z11.59 Encounter for screening for other viral diseases (principal) | CPT/HCPCS: 87426; C9803 ==

== ENCOUNTER → 2022-05-12 | Outpatient (CLI) | payer OTHER, SELFPAY ==
--- NOTE | 2022-05-12 07:51 | US_ITS ---
STUDY: ULTRASOUND OF THE FEMALE PELVIS - COMPLETE REASON FOR EXAM: Female, 31 years old. AUB -- bleeding b/t periods LMP: 05/01/2022. TECHNIQUE: Transabdominal and Transvaginal TECHNICAL QUALITY: Adequate. COMPARISON: None. FINDINGS: The uterus is anteverted and is in a midline position. The uterus measures 7.9 cm x 4.3 cm x 3.4 cm. There is a Nabothian cyst of the cervix. The endometrium measures 2.6 mm in thickness, and is hyperechoic. There is no demonstrated endometrial mass. There is a heterogeneous appearance of the myometrium suggestive of fibroid change although no focal fibroid is seen. I.U.D. - The patient does not have an I.U.D. The right ovary is visualized. The right ovary measures 4.1 cm x 1.5 cm x 1.3 cm. There is no right ovarian cyst or ovarian mass. There is no visualized right adnexal mass or complex lesion. There is normal arterial and normal venous vascularity. The left ovary is visualized. The left ovary measures 3 cm x 2.1 cm x 1.5 cm. There is no left ovarian cyst or ovarian mass. There is no visualized left adnexal mass or complex lesion. There is normal arterial and normal venous vascularity. There is no fluid in the cul-de-sac. The pre void volume of the bladder was 925 ml. US/Pelvic (Non ) IMPRESSION: Heterogeneous appearance of the myometrium suggestive of fibroid change although no focal fibroids are seen. Electronically Signed: Yasir Mendoza MD at 13:21 EST ,
== END | disposition home or self-care (01) ==
LOC: US 07:49
PROVIDERS: PCP Family Medicine; Visit Provider Obstetrics & Gynecology
DX: N93.9 Abnormal uterine and vaginal bleeding, unspecified (principal)
CPT/HCPCS: 76830; 76856

== ENCOUNTER → 2022-11-06 | Outpatient (CLI) | payer OTHER, SELFPAY ==
[2022-11-06 12:17] LABS: Absolute Lymphocyte Count 1.69 X10^3/uL (0.83-4.51); Absolute Neutrophil Count 4.4 X10^3/uL (2.0-7.7); Basophil# 0.05 X10^3/uL; Basophil% 0.7 % (0-1); Eosinophil# 0.08 X10^3/uL; Eosinophils% 1.2 % (0-5); Hematocrit 37.5 % (37-47); Hemoglobin 12.4 g/dL (12.0-15.0); Lymphocyte # 1.69 X10^3/ul (0.83-4.51); Lymphocyte % 25.3 % (19-41); Mean Corp Hgb Conc 33.1 g/dL (32-36); Mean Corpuscular Hgb 30.8 pg (27.0-32.0); Mean Corpuscular Volume 93.3 fL (81-99); Monocyte# 0.47 X10^3/uL; NRBC Flagged by Analyzer 0 % (0-5); Neutrophil # 4.37 X10^3/uL (2.7-7.7); Neutrophil % 65.5 % (47-70); Platelet Count 201 K/mm3 (150-450); RBC Distribution Width CV 12.3 % (11.6-14.6); RBC Distribution Width SD 42.8 fl (35.1-43.9); Red Blood Count 4.02 M/mm3 (4.2-5.4); White Blood Count 6.7 K/mm3 (4.4-11.0)
== END | disposition home or self-care (01) ==
LOC: BFHLAB 10:10
PROVIDERS: PCP Family Medicine; Referring Provider Family Medicine; Visit Provider Family Medicine
DX: T78.40XA Allergy, unspecified, initial encounter (principal)
CPT/HCPCS: 36415; 85025

== ENCOUNTER 2024-04-22 00:47 | Emergency (ER) | payer OTHER, SELFPAY ==
[2024-04-22 00:48] VITALS: BP 114/65; PULSE 69; RESP 18; TEMP 36.4; O2SAT 100; BMI 25.4
[2024-04-22] MEDS: 0.9% Normal Saline (1000mL) 1,000 ML 999 ML IV (01:14)
[2024-04-22 01:19] LABS: Mucous, Urine 0 SEEN /hpf (<or=2+); Red Blood Cells-Urine 0 SEEN /hpf (0-5); Squamous Epithelial Cells - UA 0 SEEN /hpf (5-10); White Blood Cells 0 SEEN /hpf (0-5)
[2024-04-22 01:22] LABS: Absolute Lymphocyte Count 1.95 X10^3/uL (0.83-4.51); Absolute Neutrophil Count 4.6 X10^3/uL (2.0-7.7); Basophil# 0.03 X10^3/uL; Basophil% 0.4 % (0-1); Eosinophil# 0.17 X10^3/uL; Eosinophils% 2.2 % (0-5); Hematocrit 38.3 % (37-47); Hemoglobin 12.8 g/dL (12.0-15.0); Lymphocyte # 1.95 X10^3/ul (0.83-4.51); Lymphocyte % 25.6 % (19-41); Mean Corp Hgb Conc 33.4 g/dL (32-36); Mean Corpuscular Hgb 30.7 pg (27.0-32.0); Mean Corpuscular Volume 91.8 fL (81-99); Mean Platelet Vol. 12.4 fl (6.2-12.0); Monocyte# 0.86 X10^3/uL; Monocyte% 11.3 % (0-10); NRBC Flagged by Analyzer 0 % (0-5); Neutrophil # 4.58 X10^3/uL (2.7-7.7); Neutrophil % 60.2 % (47-70); Platelet Count 166 K/mm3 (150-450); RBC Distribution Width CV 12.5 % (11.6-14.6); RBC Distribution Width SD 41.4 fl (35.1-43.9); Red Blood Count 4.17 M/mm3 (4.2-5.4); White Blood Count 7.6 K/mm3 (4.4-11.0)
[2024-04-22 01:24] LABS: Color, Urine Yellow (Yellow); Glucose, Dipstick Normal (Normal); Ketone-Dipstick Negative (Negative); Leukocyte Esterase-Dipstick Negative /ul (Negative); Nitrite-Dipstick Negative (Negative); Occult Blood-Urine Negative /ul (Negative); Protein-Dipstick Negative (Negative); Specific Gravity, Urine 1.015 (1.002-1.030); Urine Bilirubin Dipstick Negative (Negative); Urine Clarity Clear (Clear); Urine Urobilinogen Normal (Normal)
[2024-04-22] MEDS: Ketorolac 30 MG/ML Syringe IV (01:32)
[2024-04-22] MEDS: Pantoprazole Sodium 40 MG in 0.9% Normal Saline (100mL MB+) 100 ML 330 MG IV (01:32)
[2024-04-22 01:36] LABS: Bacteria RARE /hpf (None Seen)
[2024-04-22 01:38] LABS: Internal QC Validated? YES +Cl - CLEAR BKGD; Pregnancy, Serum, hCG Quali. NEGATIVE Negative
[2024-04-22 01:40] LABS: AST(SGOT) 15 U/L (15-37); Alanine Aminotransfer ALT/SGPT 24 U/L (13-56); Albumin, Serum 3.4 g/dL (3.2-5.0); Alkaline Phosphatase 50 U/L (45-117); Anion Gap 5 (5-15); BUN 22 mg/dL (7-18); Bilirubin, Direct 0.15 mg/dL (0.00-0.30); Calcium,Total 8.6 mg/dL (8.5-10.1); Chloride 107 mmol/L (98-107); EST Glomerular Filtration Rate 61 mL/min (>60); Est Glom Filt Rate - Afr Amer 74 mL/min (>60); Estimated Creatinine Clearance 75.13 ml/min; Globulin 3.4 g/dL (2.2-4.2); Glucose 91 mg/dL (74-106); Lipase 22 U/L (13-75); Potassium 3.7 mmol/L (3.5-5.1); Protein, Total 6.8 g/dL (6.4-8.2); Sodium Level 141 mmol/L (136-145)
[2024-04-22 01:47] LABS: Lactic Acid 0.5 mmol/L (0.4-1.9)
[2024-04-22 02:47] VITALS: BP 98/59; PULSE 56; RESP 16; O2SAT 100
[2024-04-22] MEDS: Mag Hydrox/Al Hydrox/Simeth 30 ML UDC PO (03:14)
[2024-04-22] MEDS: Lidocaine 2% Viscous15 ML UDC 15 ML PO (03:14)
[2024-04-22 03:16] VITALS: BP 101/60; PULSE 61; RESP 18; TEMP 36.7; O2SAT 100
== END 2024-04-22 03:19 | disposition home or self-care (01) ==
PROVIDERS: Emergency Provider Emergency Medicine; PCP Family Medicine; Visit Provider Emergency Medicine
DX: R10.84 Generalized abdominal pain (principal); K59.00 Constipation, unspecified; K29.70 Gastritis, unspecified, without bleeding; K21.9 Gastro-esophageal reflux disease without esophagitis; Z79.899 Other long term (current) drug therapy
CPT/HCPCS: 74177; 80048; 80076; 81001; 83605; 83690; 84703; 85025; 96365; 96375; 99283; J7030; Q9967; A4216

== ENCOUNTER → 2025-02-05 | Outpatient (CLI) | payer OTHER, SELFPAY ==
[2025-02-07 15:09] LABS: HPV APTIMA, High Risk Negative (Negative)
== END | disposition home or self-care (01) ==
PROVIDERS: PCP Family Medicine; Referring Provider Obstetrics & Gynecology; Visit Provider Obstetrics & Gynecology
DX: Z12.4 Encounter for screening for malignant neoplasm of cervix (principal)
CPT/HCPCS: 87624; 88175; G0145